=== PATIENT | male | born 1985 | race Caucasian/White ===

== ENCOUNTER 2018-08-06 17:34 | Emergency (ER) | payer SELFPAY ==
[2018-08-06 17:42] VITALS: BP 134/75; PULSE 100; RESP 16; TEMP 36.7; O2SAT 96
--- NOTE | 2018-08-06 17:51 | DI.RAD_ITS ---
SYMPTOM/DIAGNOSIS: LATERAL PAIN AFTER RUNNING LEFT ANKLE: No bony or joint abnormality is seen.
--- NOTE | 2018-08-06 17:51 | W.ED.GENAD ---
Discharge Plan Disposition Patient Disposition: HOME Condition: Improving Discharge Details Chief Complaint: Orthopedic Clinical Impression: Left ankle sprain Primary Care Provider: Jamilah,Local ED Provider: Howie Ortiz Discharge Instructions Instructions: Ankle Sprain (ED) Additional Instructions: The please wear walking boot when awake and out of bed. May begin to wean from walking boot after 3 to 5 days time with anticipated course of resolution approximately 7 to 10 days time. Ice and elevate to reduce pain and swelling. Return for any acute concern Medical Decision Making 32-year-old male who developed left ankle pain after running and questions whether he may have sprained his ankle. He has a borderline tachycardia on exam and tenderness overlying the left anterior talofibular region. Referred for x-ray to rule out underlying fracture. Images: No acute fracture. Placed patient in walking boot with anticipated course of resolution over 7 to 10 days time. He understands homecare and return precautions. He is stable and improved, appropriate for discharge at this time. HPI General Mode of arrival: ambulatory. Date/Time Provider Initiated Documentation: 08/06/18 17:47. Limitations to Documentation: no limitations. Information obtained by: patient. History of Present Illness 32 year old M presents to the emergency department with the chief complaint of Left ankle lateral pain after running, Quality is described as aching and dull, and is localized to the left and lower extremity. Patient reports no radiation. Patient started experiencing this day(s) and it has been intermittent. Rest improves symptom(s), Movement worsens symptoms . Patient notes no other symptoms.. Related Data Allergies Allergy/AdvReac Type Severity Reaction Status Date / Time No Known Allergies Allergy Unverified 08/06/18 17:45 General Stated Complaint: Orthopedic SHIMA: 4 Review of Systems Review of Systems No other injury. Worse with weightbearing, no numbness or tingling. 6 systems reviewed and otherwise negative Exam Narrative Exam Narrative: GEN: awake, alert, oriented 3. Pleasant, well groomed, interactive. HEAD: Normocephalic, atraumatic ENT: Mucous membranes moist, oropharynx unremarkable, External ear exam unremarkable EYES: PERRL, EOMI NECK: Full ROM, no BRYAN, no menigismus EXT: Full ROM, left ankle lateral edema with tenderness over the anterolateral portion Neuro: Grossly normal neurologic exam, conversant, interactive. Psych: Speech fluent, thoughts congruent, affect normal Course Vital Signs Temperature 36.7 C 08/06/18 17:42 Pulse 100 H 08/06/18 17:42 Respiratory Rate 16 08/06/18 17:42 Blood Pressure 134/75 08/06/18 17:42 Pulse Oximetry 96 08/06/18 17:42 Temperature 36.7 C 08/06/18 17:42 Pulse 100 H 08/06/18 17:42 Respiratory Rate 16 08/06/18 17:42 Blood Pressure 134/75 08/06/18 17:42 Blood Pressure Position Sitting 08/06/18 17:42 Pulse Oximetry 96 08/06/18 17:42 Oxygen Delivery Method Room Air 08/06/18 17:42 Oxygen Flow Rate 0 08/06/18 17:42 Pain Level 7 08/06/18 17:42
--- NOTE | 2018-08-06 17:54 | ED.GENADUL_ITS ---
Discharge Plan Disposition Patient Disposition: HOME Condition: Improving Discharge Details Chief Complaint: Orthopedic Clinical Impression: Left ankle sprain Primary Care Provider: Jamilah,Local ED Provider: Howie Ortiz Discharge Instructions Instructions: Ankle Sprain (ED) Additional Instructions: The please wear walking boot when awake and out of bed. May begin to wean from walking boot after 3 to 5 days time with anticipated course of resolution approximately 7 to 10 days time. Ice and elevate to reduce pain and swelling. Return for any acute concern Medical Decision Making 32-year-old male who developed left ankle pain after running and questions whether he may have sprained his ankle. He has a borderline tachycardia on exam and tenderness overlying the left anterior talofibular region. Referred for x- ray to rule out underlying fracture. Images: No acute fracture. Placed patient in walking boot with anticipated course of resolution over 7 to 10 days time. He understands homecare and return precautions. He is stable and improved, appropriate for discharge at this time. HPI General Mode of arrival: ambulatory . Date/Time Provider Initiated Documentation: 08/06/18 17:47 . Limitations to Documentation: no limitations . Information obtained by: patient . History of Present Illness 32 year old M presents to the emergency department with the chief complaint of Left ankle lateral pain after running, Quality is described as aching and dull, and is localized to the left and lower extremity. Patient reports no radiation. Patient started experiencing this day(s) and it has been intermittent. Rest improves symptom(s), Movement worsens symptoms . Patient notes no other symptoms.. Related Data Allergies Allergy/AdvReac Type Severity Reaction Status Date / Time No Known Allergies Allergy Unverified 08/06/18 17:45 General Stated Complaint: Orthopedic SHIMA: 4 Review of Systems Review of Systems No other injury. Worse with weightbearing, no numbness or tingling. 6 systems reviewed and otherwise negative Exam Narrative Exam Narrative: GEN: awake, alert, oriented 3. Pleasant, well groomed, interactive. HEAD: Normocephalic, atraumatic ENT: Mucous membranes moist, oropharynx unremarkable, External ear exam unremarkable EYES: PERRL, EOMI NECK: Full ROM, no BRYAN, no menigismus EXT: Full ROM, left ankle lateral edema with tenderness over the anterolateral portion Neuro: Grossly normal neurologic exam, conversant, interactive. Psych: Speech fluent, thoughts congruent, affect normal Course Vital Signs Temperature 36.7 C 08/06/18 17:42 Pulse 100 H 08/06/18 17:42 Respiratory Rate 16 08/06/18 17:42 Blood Pressure 134/75 08/06/18 17:42 Pulse Oximetry 96 08/06/18 17:42 Temperature 36.7 C 08/06/18 17:42 Pulse 100 H 08/06/18 17:42 Respiratory Rate 16 08/06/18 17:42 Blood Pressure 134/75 08/06/18 17:42 Blood Pressure Position Sitting 08/06/18 17:42 Pulse Oximetry 96 08/06/18 17:42 Oxygen Delivery Method Room Air 08/06/18 17:42 Oxygen Flow Rate 0 08/06/18 17:42 Pain Level 7 08/06/18 17:42
--- NOTE | 2018-08-06 19:05 | DI.VRAD_ITS ---
EXAM: XR Left Ankle EXAM DATE/TIME: 08/06/2018 5:51 PM CLINICAL HISTORY: 32 years old, male; Pain; Ankle; Left TECHNIQUE: Imaging protocol: XR Left ankle. Views: 1 or 2 views. COMPARISON: No relevant prior studies available. FINDINGS: Bones/joints: There is a small calcaneal enthesophyte appreciated. No acutely displaced fracture or dislocation. Soft tissues: Mild soft tissue swelling about the ankle. IMPRESSION: Negative for acute skeletal pathology. Dictated and Authenticated by: James Peralta MD. Ordering:DONITA Denise MD
[2018-08-06 22:11] VITALS: BP 150/88
== END 2018-08-06 19:29 | disposition home or self-care (01) ==
PROVIDERS: Emergency Provider Emergency Medicine
DX: S93.402A Sprain of unspecified ligament of left ankle, initial encounter (principal); X50.9XXA Other and unspecified overexertion or strenuous movements or postures, initial encounter
CPT/HCPCS: 29515; 99283; 73600; 99282